=== PATIENT | female | born 1970 | race Caucasian/White ===

== ENCOUNTER 2019-05-06 22:08 | Emergency (ER) | payer OTHER ==
[2019-05-06 22:20] VITALS: BP 133/71; PULSE 71
--- NOTE | 2019-05-06 22:41 | EDM.PDOC ---
ED HPI GENERAL MEDICAL PROBLEM - General Chief Complaint: Skin Complaint Stated Complaint: stitches burning and red Time Seen by Provider: 05/06/19 22:12 Source of Information: Reports: Patient History Limitations: Reports: No Limitations - History of Present Illness INITIAL COMMENTS - FREE TEXT/NARRATIVE: This is a 48-year-old female. She had a mole taken off her left anterior chest just below the neck line on . She says the stitches or pulling and burning and she wants to know if she can have the stitches out. I explained to her that after 3 days the skin edges are not adhered together and if I took the stitches out the wound would open and they would have to heal by granulation tissue which would take 3-4 weeks and so I cannot take out the sutures. She has been using Neosporin ointment liberally on the sutures and they're somewhat reddened and slightly puffed up with there is no drainage. I explained to her my concern that maybe the Neosporin is causing more of the irritation since there are people who are allergic to Neosporin ointment. She denies any fever or chills she denies any drainage from the wound. She does state she has internal sutures as well. Left Upper Chest Pain Score (Numeric/FACES): 8 - Related Data Allergies Allergy/AdvReac Type Severity Reaction Status Date / Time No Known Allergies Allergy Verified 05/06/19 22:20 Home Meds: Home Meds Cephalexin [Keflex] 500 mg PO TID #15 capsule 05/06/19 [Rx] Past Medical History - Past Health History Medical/Surgical History: Denies Medical/Surgical History - Past Surgical History Other HEENT Surgeries/Procedures: lasix Social & Family History - Tobacco Use Smoking Status *Q: Unknown Ever Smoked ED ROS GENERAL - Review of Systems Review Of Systems: See Below Constitutional: Denies: Fever, Chills HEENT: Reports: No Symptoms Respiratory: Reports: No Symptoms Cardiovascular: Reports: No Symptoms Endocrine: Reports: No Symptoms GI/Abdominal: Reports: No Symptoms : Reports: No Symptoms Musculoskeletal: Reports: No Symptoms Skin: Reports: Other (As per history of present illness) Neurological: Reports: No Symptoms Psychiatric: Reports: No Symptoms Hematologic/Lymphatic: Reports: No Symptoms ED EXAM, SKIN/RASH Exam: See Below Exam Limited By: No Limitations General Appearance: Alert, WD/WN, No Apparent Distress Eye Exam: Bilateral Eye: Normal Inspection Ears: Normal External Exam Nose: Normal Inspection Throat/Mouth: Normal Lips, Normal Voice, No Airway Compromise Head: Normocephalic Neck: Supple Respiratory/Chest: No Respiratory Distress Back Exam: Full Range of Motion Extremities: Normal Inspection, Normal Range of Motion Neurological: Alert, Oriented Psychiatric: Normal Affect, Normal Mood Skin: Warm, Dry, Other (In the left attachment of the sternocleidomastoid muscle anteriorly there are approximately 5 sutures that appear to be well placed. There is some inflammation around those sutures but there is no drainage noted. They are somewhat tender on palpation and there is some slight puffiness in that area. There are no other acute findings.) Course - Vital Signs Last Recorded V/S: Last Vital Signs Temp 97.7 F 05/06/19 22:17 Pulse 71 05/06/19 22:17 Resp 18 05/06/19 22:17 BP 133/71 05/06/19 22:17 Pulse Ox 100 05/06/19 22:17 Departure - Departure Time of Disposition: 22:39 Disposition: Home, Self-Care 01 Condition: Good Clinical Impression: History of removal of skin mole, Irritating sensation along suture line, Wound infection - Discharge Information *PRESCRIPTION DRUG MONITORING PROGRAM REVIEWED*: Not Applicable *COPY OF PRESCRIPTION DRUG MONITORING REPORT IN PATIENT TAYLOR: Not Applicable Prescriptions: Cephalexin [Keflex] 500 mg PO TID #15 capsule Referrals: Selina Floyd MD [Ordering Only Provider] - Additional Instructions: Do not use the Neosporin ointment anymore since that might be causing part of your symptoms, leave the wound dry and gently wash it with soap and water daily , take the antibiotics 3 times a day for the next 5 days, follow-up with your doctor next for recheck in the sutures might be ready at that time to be removed, return to the ER if needed
[2019-05-06] MEDS ORDERED: Cephalexin 500 MG Cap PO ONE (22:42)
== END 2019-05-06 22:49 | disposition home or self-care (01) ==
LOC: JD.ED 22:08
DX: T81.40XA Infection following a procedure, unspecified, initial encounter (principal)
CPT/HCPCS: 99282; 99283

== ENCOUNTER 2022-10-19 09:59 | Day surgery (SDC) | payer OTHER ==
[~2022-10-19 09:59] MED LIST: Lactated Ringers 1,000 ML IV SCH; Lidocaine 1%/Sod Bicarbonate in NS 8.4% 1 ML Syringe IDERM PRN; Sodium Chloride 0.9% 10 ML Syringe FLUSH PRN; Sodium Chloride 0.9% 10 ML Syringe FLUSH SCH
[2022-10-19] MEDS ORDERED: Ondansetron 4 MG/2 ML SDV IVPUSH PRN (10:48)
[2022-10-19] MEDS ORDERED: fentaNYL 100 MCG/2 ML SDV ONE (11:28)
[2022-10-19] MEDS ORDERED: Lidocaine 1% 2 ML ONE (11:28)
[2022-10-19] MEDS ORDERED: Midazolam 1 MG/ML 2 ML SDV ONE (11:29)
[2022-10-19] MEDS ORDERED: Propofol 200 MG/20 ML SDV ONE ×2 (11:29→11:56)
[2022-10-19 13:11] VITALS: BP 112/66; PULSE 57
== END 2022-10-19 13:07 | disposition home or self-care (01) ==
LOC: JD.SDS 09:59
PROVIDERS: ATTEND Surgery
DX: Z12.11 Encounter for screening for malignant neoplasm of colon (principal); Q43.8 Other specified congenital malformations of intestine; E66.9 Obesity, unspecified; E11.9 Type 2 diabetes mellitus without complications; G47.00 Insomnia, unspecified; Z79.899 Other long term (current) drug therapy; Z68.41 Body mass index [BMI] 40.0-44.9, adult; Z86.16 Personal history of COVID-19; Z80.0 Family history of malignant neoplasm of digestive organs
CPT/HCPCS: 45378; J2250; J2704; J3010; J7120; 00812; J3490